=== PATIENT | male | born 1995 | race Caucasian/White ===

== ENCOUNTER 2024-10-31 19:06 | Emergency (ER) | payer SELFPAY ==
[~2024-10-31] VITALS: Ht 172.7 cm; Wt 118.0 kg
[2024-10-31 19:23] VITALS: TEMP 36.7; O2SAT 100
[2024-10-31] MEDS ORDERED: LIDO700A15 TP (21:59)
[2024-10-31] MEDS ORDERED: NAPR-1176 MT (21:59)
[2024-10-31 22:03] VITALS: BP 137/86; PULSE 76; RESP 18
[2024-10-31] MEDS: KETOROLAC 15MG/ML VIAL IM ONE (22:03)
== END 2024-10-31 22:26 | disposition home or self-care (01) ==
LOC: ER 19:06
DX: M25.531 Pain in right wrist (principal); F10.90 Alcohol use, unspecified, uncomplicated; F12.90 Cannabis use, unspecified, uncomplicated; Z79.1 Long term (current) use of non-steroidal anti-inflammatories (NSAID); Y90.9 Presence of alcohol in blood, level not specified
CPT/HCPCS: 73090; 73110; 73130; 96372; 99284; J1885; Z7610